=== PATIENT | male | born 1945 | race Caucasian/White ===

== ENCOUNTER → 2017-12-01 | Outpatient (CLI) | payer OTHER | LOC: FIMAGING 15:52 | PROVIDERS: ATTEND Specialist | DX: N20.0 Calculus of kidney (principal); N21.0 Calculus in bladder; R31.9 Hematuria, unspecified ==

== ENCOUNTER → 2017-12-03 | Outpatient (CLI) | payer OTHER | LOC: FIMAGING 13:39 | PROVIDERS: ATTEND Specialist | DX: N20.0 Calculus of kidney (principal); R31.9 Hematuria, unspecified; R93.41 Abnormal radiologic findings on diagnostic imaging of renal pelvis, ureter, or bladder ==

== ENCOUNTER 2018-02-22 10:47 | Inpatient (IN) | payer OTHER ==
--- NOTE | 2018-02-22 11:19 | CPEKG ---
Heart Rate: 82 RR Interval: 732 P-R Interval: 172 QRSD Interval: 88 QT Interval: 344 QTC Interval: 402 P [place]: 77 QRS [place]: 39 EKG Severity - OTHERWISE NORMAL ECG - EKG Impression: SINUS RHYTHM EKG Impression: LOW VOLTAGE IN FRONTAL LEADS Electronically Signed By: Wolfgang Conner 22-Feb-2018 11:21:20
--- NOTE | 2018-02-22 11:19 | EDPHY ---
H & P Stated Complaint: FEVER/FATIGUE/HAD SURG THURS FOR BLADDER STONES Time Seen by Provider: 02/22/18 11:19 HPI/ROS: CHIEF COMPLAINT: Fever and fatigue following bladder stone removal HISTORY OF PRESENT ILLNESS: The patient presents to the ED with complaints of fever and fatigue following removal bladder stone. This occurred 5 days ago. He is not been on antibiotics. He reports shaking chills and rigors earlier today. He complains of generalized weakness. The patient has been urinating with frequency. He denies any flank pain. He denies any additional acute complaints. REVIEW OF SYSTEMS: A comprehensive 10 point review of systems is otherwise negative aside from elements mentioned in the history of present illness. Source: Patient - Personal History Current Tetanus Diphtheria and Acellular Pertussis (TDAP): Unsure - Medical/Surgical History Hx Asthma: No Hx Chronic Respiratory Disease: No Hx Diabetes: No Hx Cardiac Disease: No Hx Renal Disease: No Hx Cirrhosis: No Hx Alcoholism: No Hx HIV/AIDS: No Hx Splenectomy or Spleen Trauma: No Other PMH: BLADDER SSTONES - Social History Smoking Status: Never smoked - Physical Exam Exam: General Appearance: Elderly male, warm and flush Eyes: Pupils equal and round no pallor or injection ENT, Mouth: Mucous membranes moist Respiratory: There are no retractions, lungs are clear to auscultation Cardiovascular: Regular rate and rhythm Gastrointestinal: Abdomen is soft and nontender, no masses, bowel sounds normal Neurological: A&O, normal motor function, normal sensory exam, normal cranial nerves Skin: Warm and dry, no rashes Musculoskeletal: Neck is supple nontender Extremities: symmetrical, full range of motion Constitutional: Initial Vital Signs Temperature (C) 37.3 C 02/22/18 10:54 Heart Rate 90 02/22/18 10:54 Respiratory Rate 18 02/22/18 10:54 Blood Pressure 94/64 L 02/22/18 10:54 O2 Sat (%) 96 02/22/18 10:54 O2 Delivery Mode Room Air Allergies/Adverse Reactions: No Known Allergies Allergy (Verified 02/22/18 10:53) Home Medications: Medication Instructions Recorded Amiloride HCl-Hctz 5-50 mg Tab DAILY 02/01/18 Uribel Capsule 02/22/18 Medical Decision Making - Diagnostics EKG Interpretation: EKG: Complete interpretation has been separately recorded in the [facility] archive. Summary impression: Sinus rhythm, rate 82 ED Course/Re-evaluation: Oral temperature on my check is 38.0 degrees. He presents to the ED with fever and shaking chills with urinary complaints following a recent surgery. Blood cultures x2 are obtained. The patient's urinalysis does demonstrate pyuria and hematuria. The patient is started on IV ceftriaxone. The patient currently does not have SIRS criteria. The patient will be admitted to the hospital for observation this evening by Dr. Malaika Cortes. I re-evaluated the patient at 1:00 p.m. and he is resting comfortably in the room. Vital signs remained stable without evidence of septic physiology. Differential Diagnosis: Differential diagnosis considered includes renal failure, bacteremia, sepsis, dehydration, metabolic abnormality - Data Points Laboratory Results: Laboratory Results 02/22/18 11:18 02/22/18 11:18 02/22/18 02/22/18 02/22/18 12:05 11:27 11:18 WBC 9.52 10^3/uL H 10^3/uL (3.80-9.50) RBC 5.19 10^6/uL 10^6/uL (4.40-6.38) Hgb 16.2 g/dL g/dL (13.7-17.5) Hct 46.1 % % (40.0-51.0) MCV 88.8 fL fL (81.5-99.8) MCH 31.2 pg pg (27.9-34.1) MCHC 35.1 g/dL g/dL (32.4-36.7) RDW 12.7 % % (11.5-15.2) Plt Count 253 10^3/uL 10^3/uL (150-400) MPV 9.1 fL fL (8.7-11.7) Neut % (Auto) Not Reported Lymph % (Auto) Not Reported [place] % (Auto) Not Reported Eos % (Auto) Not Reported Baso % (Auto) Not Reported Nucleat RBC Rel Count Not Reported Absolute Neuts (auto) Not Reported Absolute Lymphs (auto) Not Reported Absolute Monos (auto) Not Reported Absolute Eos (auto) Not Reported Absolute Basos (auto) Not Reported Absolute Nucleated RBC Not Reported Immature Gran % Not Reported Seg Neutrophils % 78.0 % % Band Neutrophils % 6.0 % % Lymphocytes % 5.0 % % Monocytes % 11.0 % % Eosinophils % 0 % % Basophils % 0 % % Metamyelocytes % 0 % % Myelocytes % 0 % % Promyelocytes % 0 % % Blast Cells % 0 % % Immature Gran # Not Reported Absolute Seg Neuts 7.43 10^/uL H 10^/uL (1.70-6.50) Absolute Band Neuts 0.57 10^3/uL 10^3/uL (0.00-0.70) Absolute Lymphocytes 0.48 10^3/uL L 10^3/uL (1.00-3.00) Absolute Monocytes 1.05 10^3/uL H 10^3/uL (0.30-0.80) Absolute Eosinophils 0.00 10^3/uL L 10^3/uL (0.03-0.40) Absolute Basophils 0.00 10^3/uL L 10^3/uL (0.02-0.10) Absolute Metamyelocyte 0.00 10^3/mL 10^3/mL (0.00-0.00) Absolute Myelocytes 0.00 10^3/mL 10^3/mL (0.00-0.00) Absolute Promyelocytes 0.00 10^3/uL 10^3/uL (0.00-0.00) Absolute Plasma Cells 0.00 10^3/uL 10^3/uL (0.00-0.00) Nucleated RBCs 0 /100 WBC /100 WBC (0-0) RBC/WBC/PLT Morphology NORMAL (NORMAL) Absolute Blast Cells 0.00 10^3/uL 10^3/uL (0.00-0.00) Plasma Cells % 0 % % Platelet Estimate ADEQUATE (ADEQ) Sodium Potassium Chloride Carbon Dioxide Anion Gap BUN Creatinine Estimated GFR Glucose Calcium Total Bilirubin AST ALT Alkaline Phosphatase POC Troponin I 0.00 ng/mL ng/mL (0.00-0.08) Total Protein Albumin Urine Color YELLOW Urine Appearance MODERATELY TURBID Urine pH 8.0 H (5.0-7.5) Ur Specific [place] 1.018 (1.002-1.030) Urine Protein 1+ H (NEGATIVE) Urine Ketones 1+ H (NEGATIVE) Urine Blood 2+ H (NEGATIVE) Urine Nitrate NEGATIVE (NEGATIVE) Urine Bilirubin NEGATIVE (NEGATIVE) Urine Urobilinogen 2.0 EU H EU (0.2-1.0) Ur Leukocyte Esterase 3+ H (NEGATIVE) Urine RBC 50-182 /hpf H /hpf (0-3) Urine WBC 50-182 /hpf H /hpf (0-3) Ur Epithelial Cells NONE SEEN /lpf /lpf (NONE-1+) Urine Mucus TRACE /lpf /lpf (NONE-1+) Urine Glucose NEGATIVE (NEGATIVE) 02/22/18 11:18 WBC RBC Hgb Hct MCV MCH MCHC RDW Plt Count MPV Neut % (Auto) Lymph % (Auto) [place] % (Auto) Eos % (Auto) Baso % (Auto) Nucleat RBC Rel Count Absolute Neuts (auto) Absolute Lymphs (auto) Absolute Monos (auto) Absolute Eos (auto) Absolute Basos (auto) Absolute Nucleated RBC Immature Gran % Seg Neutrophils % Band Neutrophils % Lymphocytes % Monocytes % Eosinophils % Basophils % Metamyelocytes % Myelocytes % Promyelocytes % Blast Cells % Immature Gran # Absolute Seg Neuts Absolute Band Neuts Absolute Lymphocytes Absolute Monocytes Absolute Eosinophils Absolute Basophils Absolute Metamyelocyte Absolute Myelocytes Absolute Promyelocytes Absolute Plasma Cells Nucleated RBCs RBC/WBC/PLT Morphology Absolute Blast Cells Plasma Cells % Platelet Estimate Sodium 131 mEq/L L mEq/L (135-145) Potassium 3.5 mEq/L mEq/L (3.3-5.0) Chloride 100 mEq/L mEq/L (97-110) Carbon Dioxide 22 mEq/l mEq/l (22-31) Anion Gap 9 mEq/L mEq/L (8-16) BUN 17 mg/dL mg/dL (7-23) Creatinine 1.2 mg/dL mg/dL (0.7-1.3) Estimated GFR 59 Glucose 107 mg/dL H mg/dL (70-100) Calcium 9.3 mg/dL mg/dL (8.5-10.4) Total Bilirubin 1.6 mg/dL H mg/dL (0.1-1.4) AST 56 IU/L IU/L (17-59) ALT 58 IU/L IU/L (21-72) Alkaline Phosphatase 72 IU/L IU/L (38-126) POC Troponin I Total Protein 6.7 g/dL g/dL (6.3-8.2) Albumin 3.9 g/dL g/dL (3.5-5.0) Urine Color Urine Appearance Urine pH Ur Specific [place] Urine Protein Urine Ketones Urine Blood Urine Nitrate Urine Bilirubin Urine Urobilinogen Ur Leukocyte Esterase Urine RBC Urine WBC Ur Epithelial Cells Urine Mucus Urine Glucose Medications Given: Discontinued Medications Ceftriaxone Sodium 2 gm/ (Sodium Chloride) 50 mls @ 100 mls/hr IV EDNOW ONE PRN Reason: Protocol Stop: 02/22/18 12:57 Last Admin: 02/22/18 12:36 Dose: 50 mls Point of Care Test Results: Chemistry 02/22/18 11:27 POC Troponin I 0.00 ng/mL ng/mL (0.00-0.08) Departure - Departure Disposition: [facility] Inpatient Acute Clinical Impression: UTI (urinary tract infection) Condition: Good Referrals: Sol Loco MD [Primary Care Provider] - As per Instructions
[2018-02-22 11:36] LABS: PLATELET COUNT 253 10^3/uL (150-400)
[2018-02-22] MEDS ORDERED: cefTRIAXone 1 GM/DEXTROSE 1 GM/50 ML BAG IV ONE (12:32)
[2018-02-22] MEDS ORDERED: NS 1,000 ML IV ONE (13:24)
[2018-02-22] MEDS ORDERED: ONDANSETRON 4 MG/2 ML VIAL IVP PRN (14:52)
[2018-02-22] MEDS ORDERED: PROMETHAZINE HCL 25 MG/ML INJ IVP PRN (14:52)
[2018-02-22] MEDS ORDERED: oxyCODONE IR 5 MG TAB PO PRN (14:52)
[2018-02-22] MEDS: NS 1,000 ML IV SCH (15:12)
--- NOTE | 2018-02-22 15:50 | GHP ---
[f rep st] HISTORY AND PHYSICAL DATE OF ADMISSION: 02/22/2018 CHIEF COMPLAINT: Shaking chills. HISTORY OF PRESENT ILLNESS: Madhu is a 72-year-old male who underwent laser lithotripsy of large blad devyn stones with Dr. Holland on February 17. These stones were causing hematuria while the patient went for runs. During the procedure, the stones were found to be extremely hard with sharp fragments causing hemorrhagic cystitis. A catheter was placed and was discontinued at Dr. Holland's office yesterday mo rning. Today, he developed shaking chills with rigors, acute weakness and dizziness. He has had karmen quency and dysuria. His urine is pink colored. PAST MEDICAL HISTORY: 1. Kidney and bladder stones, status post multiple procedures. 2. BPH. 3. Hypertension. 4. Also includes inguinal hernia. MEDICATIONS: Please see computerized record for full details. ALLERGIES: No known drug allergies. SOCIAL HISTORY: No smoking. Drinks alcohol 1-2 beverages per day. He lives with his . He work s out 5 times a week. He recently ran a [employer]. REVIEW OF SYSTEMS: Complete review of systems obtained. Review of systems negative regarding consti tutional, HEENT, GI, pulmonary, cardiovascular, , hematologic, endocrine, psych, except for positiv es as in HPI. FAMILY HISTORY: Reviewed, noncontributory to presenting complaint. PHYSICAL EXAMINATION: GENERAL: Well-developed, well-nourished male, in no acute distress. VITAL SI GNS: Temperature 37.2, pulse 71, blood pressure 102/56, saturating 91% on room air. HEENT: Normal conjunctivae. Pupils react to light. ENT, normal ears, nose. Hearing intact. Normal teeth. Oroph arynx moist. NECK: Trachea midline. No thyromegaly. CHEST: Normal respiratory effort. Lungs vane ar to auscultation bilaterally. CARDIOVASCULAR: Regular rhythm. No murmur. No lower extremity valdez ma. ABDOMEN: Soft, nontender. No hepatosplenomegaly. SKIN: Warm, dry, intact. No rash. MUSCULO SKELETAL: No cyanosis or clubbing. Strength 5/5 upper and lower extremities. NEUROLOGIC: Cranial nerves intact. Normal sensation to light touch. PSYCHIATRIC: Alert and oriented x3. Normal affect . Normal judgment. Normal memory. LABORATORY DATA: White count 9.52, hematocrit 46.1, platelets 253. Sodium 131, potassium 3.5, chlor zoya 100, bicarb 22, BUN 17, creatinine 1.2, glucose 107. Troponins negative. LFTs are negative. Ur inalysis shows 50 to 182 white blood cells. EKG viewed by me. My personal interpretation is normal sinus rhythm. Some nonspecific ST or T-wave changes. MEDICAL RECORDS REVIEW: I reviewed operative report from Dr. Holland, summary above regarding difficul ties with procedure. ASSESSMENT AND PLAN: 1. Urinary tract infection. Continue IV ceftriaxone pending culture. 2. Recent bladder stone laser lithotripsy. This was a difficult procedure with large sharp fragment s remaining in the bladder. We will check a renal ultrasound. 3. BPH. Consider initiating Flomax if he has retention. 4. Code status. Full. 5. Admission status. Will admit to observation. Reevaluate tomorrow for ongoing need for hospitali zation. 6. Deep vein thrombosis prophylaxis. He is high risk. Will place him on subcutaneous Lovenox. /[id number]/MODL
[2018-02-22] MEDS: ACETAMINOPHEN 325 MG TAB PO PRN (16:32)
[2018-02-22] MEDS: Meth/Meblue/Sod Phos/Psal/Hyos [Uribel Capsule] 1 EACH PO SCH (18:17)
[2018-02-22] MEDS: ASPIRIN 81 MG CHEWABLE TAB PO SCH (21:15)
[2018-02-23] MEDS: NS 1,000 ML IV SCH ×2 (04:20→16:08)
[2018-02-23] MEDS: Meth/Meblue/Sod Phos/Psal/Hyos [Uribel Capsule] 1 EACH PO SCH ×3 (08:20→14:13)
[2018-02-23] MEDS: ENOXAPARIN 40 MG/0.4 ML SYR SC SCH (08:22)
[2018-02-23] MEDS: TAMSULOSIN HCL 0.4 MG CAP PO SCH (10:05)
--- NOTE | 2018-02-23 11:09 | ASMTCMCOM ---
CM Note CM Note Notes: Pt had a bladder stone removed about 6 days ago, then presented to the ER with fever/chills. He was admitted with a UTI. Pt lives at home w/his , PT/OT ordered but anticipate pt will be independent. He works out 5 days a week and just ran [place] [place] Plan: Independent Date Signed: 02/23/2018 11:08 AM Electronically Signed By:Edith Gomez RN
--- NOTE | 2018-02-23 15:40 | HOSPPROG ---
Hospitalist Progress Note Assessment/Plan: * UTI with sepsis (POA) -IV ceftriaxone pending culture * Recent bladder stone laser lithotripsy * BPH -start Flomax * HTN -holding amlodipine/HCTZ due to hypotension Subjective: Much better today Objective: Vital Signs Temp Pulse Resp BP Pulse Ox 38 C 85 14 112/64 93 02/23/18 14:58 02/23/18 14:58 02/23/18 14:58 02/23/18 14:58 02/23/18 14:58 Laboratory Results 02/23/18 04:47 02/22/18 02/23/18 02/24/18 05:59 05:59 05:59 Intake Total 2220 500 Output Total 720 Balance 1500 500 Renal US - mild retention, small fragments of stone - Physical Exam Constitutional: no apparent distress, appears nourished, not in pain Cardiovascular: regular rate and rhythym, no murmur, rub, or gallop Respiratory: no respiratory distress, no rales or rhonchi, clear to auscultation Gastrointestinal: normoactive bowel sounds, soft, non-tender abdomen, no palpable masses Skin: no rashes or abrasions, no fluctuance, no induration Neurologic: AAOx3, sensation intact bilaterally Psychiatric: interacting appropriately, not anxious, not encephalopathic, thought process linear ICD10 Worksheet Patient Problems: Problems Problem Status Onset UTI (urinary tract infection) Acute Bladder calculi Acute Nephrolithiasis Acute
--- NOTE | 2018-02-23 16:37 | PDMN ---
Medical Necessity Medical necessity: Change to IP, as of 02/23/18, per & MCG M-160; los >2 mn for ongoing management of sepsis r/t UTI; requiring IV abx, IVFs & therapy; hx recent bladder stone laser lithotripsy & HTN
[2018-02-23] MEDS: ACETAMINOPHEN 325 MG TAB PO PRN (21:28)
[2018-02-23] MEDS: ASPIRIN 81 MG CHEWABLE TAB PO SCH (21:28)
[2018-02-24] MEDS: ENOXAPARIN 40 MG/0.4 ML SYR SC SCH (11:05)
[2018-02-24] MEDS: TAMSULOSIN HCL 0.4 MG CAP PO SCH (11:09)
[2018-02-24] MEDS: Meth/Meblue/Sod Phos/Psal/Hyos [Uribel Capsule] 1 EACH PO SCH ×2 (11:55→13:19)
[2018-02-24 15:20] VITALS: BP 116/74
--- NOTE | 2018-02-24 18:00 | GDS ---
[f rep st] DISCHARGE SUMMARY DISCHARGE DIAGNOSES: 1. Urinary tract infection, post urologic procedure. 2. Sepsis present on admission. 3. Recent bladder stone laser lithotripsy. 4. Benign prostatic hyperplasia. HISTORY: The patient is a 72-year-old male who suffers from recurrent bladder and kidney stones. He underwent elective surgery with Dr. Holland for laser lithotripsy of large hard bladder stones that we re causing some irritation with activity. A few days after the procedure, he developed fever, dysuri a, rigors, and is diagnosed with a urinary tract infection with sepsis. Urine culture is growing Ent erobacter. Sensitivities are pending at the time of discharge. He improved on IV ceftriaxone. The patient looks very well at this point, and anxious for discharge home. I think it is likely to be se nsitive to oral Levaquin, which is prescribed at discharge. He will call Dr. Loco's office tomorrow for final sensitivities to ensure Levaquin sensitivity. Also during his procedure, prostatic enlarg ement was noted. He got a renal ultrasound during this hospitalization that did show some urinary re tention, although not enough for catheterization. I started him on Flomax. DISCHARGE MEDICATIONS: Please see computerized record for full detailed list. New medications: 1. Levaquin 500 mg p.o. daily for 7 more days. 2. Flomax 0.4 mg p.o. daily. ADDITIONAL DISCHARGE INSTRUCTIONS: 1. Call Dr. Loco's office tomorrow for final urine sensitivities to enterobacter infection. 2. Follow up with Dr. Holland. The patient has been communicating with Dr. Holland throughout this hosp italization and he was aware of the complication. Greater than 30 minutes' time was spent arranging this discharge. Patient was seen and examined by belle vinson on date of discharge. /[id number]/MODL
== END 2018-02-24 15:48 | disposition home or self-care (01) | DRG 872 ==
LOC: INTOOBSV 12:59 → F3E 13:55 → OBSVTOIN 02-23 11:27
PROVIDERS: ADMIT Internal Medicine; ATTEND Internal Medicine
DX: A41.89 Other specified sepsis (principal); N39.0 Urinary tract infection, site not specified; N40.1 Benign prostatic hyperplasia with lower urinary tract symptoms; B96.89 Other specified bacterial agents as the cause of diseases classified elsewhere
CPT/HCPCS: 84484-PO; 96365; 97161-GP; 97165-GO; G0378; G8978-GP-CI; G8979-GP-CI; G8980-GP-CI; G8987-GO-CI; G8988-GO-CI; G8989-GO-CI; J0696; J1650

== ENCOUNTER → 2018-11-27 | Outpatient (CLI) | payer OTHER | LOC: FIMAGING 07:42 → EDSTATUS 07:43 | PROVIDERS: ATTEND Specialist | DX: N20.0 Calculus of kidney (principal); R93.5 Abnormal findings on diagnostic imaging of other abdominal regions, including retroperitoneum ==

== ENCOUNTER → 2018-12-02 | Outpatient (CLI) | payer OTHER | LOC: FIMAGING 13:24 | PROVIDERS: ATTEND Specialist | DX: N20.0 Calculus of kidney (principal); N28.1 Cyst of kidney, acquired ==